=== PATIENT | female | born 1940 ===

== ENCOUNTER 2016-10-27 17:28 | Emergency (ER) | payer OTHER ==
[2016-10-27 17:59] LABS: ABSOLUTE BASOPHIL COUNT 0.1 /CUMM (0.0-0.2); ABSOLUTE EOSINOPHIL COUNT 0.1 /CUMM (0.0-0.7); ABSOLUTE GRANULOCYTE CT 5.5 /CUMM (1.4-6.5); ABSOLUTE LYMPH COUNT 1.7 /CUMM (1.2-3.4); ABSOLUTE MONOCYTE COUNT 0.6 /CUMM (0.10-0.60); BASOPHIL % 0.9 % (0.0-2.0); EOSINOPHIL % 0.8 % (0-5); HEMATOCRIT 39.1 % (37-47); MEAN CORPUSCULAR HGB 30.7 PG (27.0-31.0); MEAN CORPUSCULAR HGB CONC 33.5 G/DL (33.0-37.0); MEAN CORPUSCULAR VOLUME 91.7 FL (81.0-99.0); MEAN PLATELET VOLUME 8.6 FL (7.4-10.4); PLATELET COUNT 273 /CUMM (130-400); RED BLOOD CELL CT 4.26 /CUMM (4.20-5.40); WHITE BLOOD CELL COUNT 7.9 /CUMM (4.8-10.8)
[2016-10-27 18:06] LABS: PT 11.3 SEC (9.4-12.5)
--- NOTE | 2016-10-27 18:39 | ED NEURO DEFICIT/STROKE ---
History of Present Illness General Chief Complaint: General Adult Stated Complaint: "VERY STRONG PAIN RIGHT SIDE PAIN" SENT BY CLINIC Source: patient Exam Limitations: no limitations Vital Signs & Intake/Output Vital Signs & Intake/Output Vital Signs Date Time Temp Pulse Resp B/P Pulse O2 O2 Flow FiO2 Ox Delivery Rate 10/27 1906 97.9 63 20 162/84 95 Room Air Room Air 10/27 1747 98.2 65 24 180/76 98 Room Air Allergies Coded Allergies: No Known Allergies (10/27/16) Reconcile Medications [AMLODIPINUM] 10 MG PO DAILY BP (Reported) Aspirin (Ecotrin*) 81 MG TABLET.DR 1 TAB PO DAILY HEART/BLOOD (Reported) [NICERGOLINUM] 10 MG PO DAILY DIZZINESS (Reported) [PERINDOPRIL/INDAPAM] (Unknown Strength) (Unknown Dose) PO DAILY BP (Reported ) Triage Note: PER PT AT 1300 WAS [facility]ORE AND FOR A BRIEF SECOND FELT TINGLING TO RT HAND TRAVELED UP RT ARM AND FACE ON RT SIDE WAS FLUSHED, WENT AWAY, WENT TO WALK IN SENT TO ED. Triage Nurses Notes Reviewed? yes HPI: This patient is a 75-year-old female with a reported medical history of heart murmur who presented to the emergency department today accompanied by her son for evaluation a shock like pain up her right arm and to her right face while she was shopping today. This patient is currently visiting from [facility]. She reported that she has seen a director it project in [place] where she had an echocardiogram. She reported that she was told she has a murmur, but does not know anymore about this condition. The patient reported that the pain was sharp and, "very strong." She was unable to give the pain a number on the pain scale. The pain only lasted a couple of seconds. It went away on its own. No palliative factors. No provoking factors. The patient reported that the same pain happened again for a couple of seconds while she was sitting in an urgent care. Regarding her sent her up here to the emergency department for further evaluation. She reported some associated diaphoresis and feeling like she was having a hot flash. No nausea, vomiting, abdominal pain, difficulty breathing, chest pain, palpitations, visual changes. (GUIDO DUEÑAS,PHONG) Past History Travel History Traveled to [place] past 21 day No Medical History Any Pertinent Medical History? see below for history Neurological: NONE EENT: NONE Cardiovascular: hypertension, HEART MURMUR Respiratory: NONE Gastrointestinal: NONE Hepatic: NONE Renal: NONE Musculoskeletal: NONE Psychiatric: NONE Endocrine: NIDDM Surgical History Surgical History: non-contributory Psychosocial History What is your primary language Frisian Tobacco Use: Never used Family History Hx Contributory? No (PHONG LORA PA-C) Review of Systems Review of Systems Constitutional: Reports: see HPI. EENTM: Reports: no symptoms. Respiratory: Reports: no symptoms. Cardiovascular: Reports: no symptoms. GI: Reports: no symptoms. Genitourinary: Reports: no symptoms. Musculoskeletal: Reports: see HPI. Skin: Reports: no symptoms. Neurological/Psychological: Reports: see HPI. All Other Systems: Reviewed and Negative (PHONG LORA PA-C) Physical Exam Physical Exam General Appearance: well developed/nourished, no apparent distress, alert, awake Cranial Nerves: normal hearing, normal speech, PERRL Comments: Well-developed well-nourished person in no acute distress HEENT: Normal EENT exam, head normocephalic, moist mucous membranes Pupils equally round and reactive to light. Neck: Supple, no lymphadenopathy Back: Normal gait Cardiovascular: Regular rate and rhythm with no murmurs, rubs or gallops. no jvd or carotid bruits Respiratory: No respiratory distress. Breath sounds clear to auscultation bilaterally with no wheezes, rales or rhonchi Extremity: Normal and equal pulses Neuro: Alert oriented x3, cranial nerves II through XII grossly intact. No aphasia, no facial droop, no unilateral weakness Skin: No appreciable rash on exposed skin, skin is warm and dry. Psych: Mood and affect is normal Core Measures CVA/TIA Diagnosis: No Severe Sepsis Present: No Septic Shock Present: No (PHONG LORA PA-C) Progress Differential Diagnosis: acute glaucoma, Eugene's Palsy, drug intoxication, electrolyte imbalance, encephalitis, hypoglycemia, intracranial Hem., intracranial mass/tumor, seizure disorder, stroke, subarachnoid Hem., vertebrobasilar insuff., acs Plan of Care: Orders Procedure Date/time Status TROPONIN LEVEL 10/27 2149 Complete EKG 10/27 2149 Active Add-on Test (ER Only) 10/27 181 Active TROPONIN LEVEL 10/27 173 Complete PROTHROMBIN TIME 10/27 173 Complete COMPREHENSIVE METABOLIC PANEL 10/27 1738 Complete CBC WITHOUT DIFFERENTIAL 10/27 1738 Complete EKG 10/27 1730 Active Laboratory Tests 10/27/16 2145: Troponin I < 0.01 10/27/16 1750: Anion Gap 12, Estimated GFR > 60, BUN/Creatinine Ratio 22.9, Glucose 96, Calcium 10.0, Total Bilirubin 0.6, AST 21, ALT 53 H, Alkaline Phosphatase 103, Troponin I < 0.01, Total Protein 7.9, Albumin 4.9, Globulin 3.0, Albumin/Globulin Ratio 1.6, PT 11.3, INR 1.08, CBC w Diff NO MAN DIFF REQ, RBC 4.26, MCV 91.7, MCH 30.7 , RDW 13.0, MPV 8.6, Gran % 70.0, Lymphocytes % 21.3, Monocytes % 7.0, Eosinophils % 0.8, Basophils % 0.9, Absolute Granulocytes 5.5, Absolute Lymphocytes 1.7, Absolute Monocytes 0.6, Absolute Eosinophils 0.1, Absolute Basophils 0.1, PUBS MCHC 33.5 Diagnostic Imaging: Viewed by Me: Radiology Read. Discussed w/RAD: Radiology Read. CXR Impression: PATIENT: OLESYA CLARKE PRESENT AGE: 75 PATIENT ACCOUNT NO: [id number] : 40 LOCATION: [facility] ORDERING PHYSICIAN: PHONG LORA PA-C SERVICE DATE: 10/27/16 EXAM TYPE: RAD - XRY-CHEST XRAY, PA AND LATERAL EXAMINATION: XR CHEST CLINICAL INFORMATION: Chest discomfort. Evaluate for cardiomegaly. COMPARISON: None. TECHNIQUE: PA and lateral views of the chest were obtained. FINDINGS: The lungs are well-expanded and clear without focal airspace consolidation. No pleural effusions or pneumothoraces are identified. Mediastinal contours are within normal limits. The cardiac silhouette appears borderline enlarged. Soft tissues are unremarkable. No acute osseous abnormality is identified. IMPRESSION: No acute pulmonary process. The cardiac silhouette appears borderline enlarged. DICTATED BY: MOSHE SHEETS MD DATE/TIME DICTATED:10/27/162033 AGENCY SERVICE REPRESENTATIVE: KARLEE DATE/TIME TRANSCRIBED:10/27/162033 CONFIDENTIAL, DO NOT COPY WITHOUT APPROPRIATE AUTHORIZATION. <Electronically signed in Other Vendor System> SIGNED BY: MOSHE SHEETS MD 10/27/162037 Initial ED EKG: normal axis, normal intervals, normal sinus rhythm, ST depression, 66 BPM, ST DEPRESSION LEADS V4 AND V5 Hand-Off Endorsed To: CHACHA STANFORD MD Endorsed Time: 2055 Pending: labs Comments: 10/27/2016 7:14:11 PM: I spoke to systems protection technician director it project, Dr. Nieves, who reviewed this patient's EKG. reported findings of diffuse ST segment depressions. Recommended second troponin and repeat ekg. If normal, patient may follow-up as an outpatient. (PHONG LORA PA-C) Departure Departure Disposition: HOME OR SELF CARE Condition: Stable Clinical Impression Primary Impression: Paresthesia Referrals: RONY NIEVES MD PATIENT HAS NO PRIMARY CARE DR (PCP/Family) Additional Instructions: PLEASE FOLLOW-UP WITH THE PRODUCE SHIPPER WHOSE INFORMATION HAS BEEN PROVIDED TO YOU IN THIS PACKET. Departure Forms: Customer Survey General Discharge Information (PHONG LORA PA-C) PA/NAILING MACHINE OPERATOR AUTOMATIC Co-Sign Statement Statement: ED Attending supervision documentation- [X] I saw and evaluated the patient. I have also reviewed all the pertinent lab results and diagnostic results. I agree with the findings and the plan of care as documented in the PA's/NAILING MACHINE OPERATOR AUTOMATIC's documentation. [X] I have reviewed the ED Record and agree with the PA's/NAILING MACHINE OPERATOR AUTOMATIC's documentation. [] Additions or exceptions (if any) to the PAs/NAILING MACHINE OPERATOR AUTOMATIC's note and plan are summarized below: [] (CHACHA STANFORD MD)
[2016-10-27] MEDS ORDERED: [UNRECOGNIZED DRUG - OTHER] PO (18:47)
[2016-10-27] MEDS ORDERED: PERINDOPRIL PO (18:47)
[2016-10-27] MEDS ORDERED: [UNRECOGNIZED DRUG - OTHER] PO (18:48)
[2016-10-27] MEDS ORDERED: AMLODIPINE PO (18:48)
[2016-10-27] MEDS ORDERED: ASPIRIN EC81 M1 PO (18:49)
--- NOTE | 2016-10-27 19:07 | CT SCAN REPORT ---
EXAMINATION: CT HEAD WITHOUT CONTRAST CLINICAL INFORMATION: Right arm and face tingling. COMPARISON: None. TECHNIQUE: Contiguous axial imaging was performed from the skull base to vertex without intravenous administration of contrast. DLP: 529 mGy-cm FINDINGS: No acute intracranial abnormality. No acute intracranial hemorrhage, mass or mass effect or abnormal extra-axial fluid collections. The density within the dural venous sinuses is within normal limits. The ventricles are normal in size, without hydrocephalus. There are no focal areas of hypoattenuation within a vascular distribution to suggest acute transcortical ischemia. The basilar cisterns are patent. No acute calvarial abnormality is identified. Soft tissues appear unremarkable. The imaged paranasal sinuses and mastoid air cells are well aerated. IMPRESSION: No acute pulmonary process.
--- NOTE | 2016-10-27 20:38 | RADIOLOGY REPORT ---
EXAMINATION: XR CHEST CLINICAL INFORMATION: Chest discomfort. Evaluate for cardiomegaly. COMPARISON: None. TECHNIQUE: PA and lateral views of the chest were obtained. FINDINGS: The lungs are well-expanded and clear without focal airspace consolidation. No pleural effusions or pneumothoraces are identified. Mediastinal contours are within normal limits. The cardiac silhouette appears borderline enlarged. Soft tissues are unremarkable. No acute osseous abnormality is identified. IMPRESSION: No acute pulmonary process. The cardiac silhouette appears borderline enlarged.
[2016-10-27 23:21] VITALS: BP 184/82
== END 2016-10-27 23:25 ==
LOC: ERH 17:28
PROVIDERS: Emergency Medicine
DX: R20.2 Paresthesia of skin (principal)
CPT/HCPCS: 93005; 93010